=== PATIENT | male | born 1990 | race Caucasian/White ===

== ENCOUNTER 2024-06-30 15:24 | Emergency (ER) | payer OTHER, SELFPAY ==
[2024-06-30 15:30] VITALS: BP 156/102; PULSE 78; RESP 16; TEMP 36.1; O2SAT 98; BMI 31.8
--- NOTE | 2024-06-30 16:18 | ED_ITS ---
HPI - Skin/Abscess/Foreign Bdy <Michelle Romero PA-C - Last Filed: 06/30/24 18:08> General Chief complaint: Skin/Abscess/Foreign Body Stated complaint: abscess on bottom x3 weeks Time Seen by Provider: 06/30/24 16:18 Source: patient Mode of arrival: Ambulatory History of Present Illness HPI narrative: Patient is a very pleasant 34-year-old male presents to the emergency room department today with a history of 3 weeks ago he was seen at [facility] with rectal discomfort and pain, he was then referred to the emergency room department and evaluated in the emergency department with concerns of rectal abscess, CT scan was concerning for a rectal abscess, General surgery was called down and they did not I and D of the perirectal abscess, I and D was performed, drainage was performed, packing was inserted, patient was placed on oral antibiotics, this was 3 weeks ago. Patient seemed to be proceeding and doing quite well, however over the last several days he started to have increasing rectal discomfort, pain, drainage again. Presented to the emergency room department today with discomfort and pain in the rectal area. Concerning for increasing fluid collection again and possible perirectal abscess. 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 Denies fevers, he denies urinary symptoms, denies constipation though he does have difficulty and pain with bowel movements. No back pain. No nausea, vomiting or abdominal pain. No other further complaints. Related Data Previous Rx's Medication Instructions Recorded cephalexin 500 mg capsule 500 mg PO QID 10 days #40 caps 06/30/24 hydrocodone 5 mg-acetaminophen 325 1 tab PO Q4-6H PRN pain #20 tabs 06/30/24 mg tablet Allergies Allergy/AdvReac Type Severity Reaction Status Date / Time No Known Drug Allergies Allergy Verified 06/30/24 15:32 Review of Systems <Michelle Romero PA-C - Last Filed: 06/30/24 18:08> Review of Systems Narrative: Negative except as above Integumentary/Breasts Comments: Patient has a history of skin related issues and abscesses, recently had an abscess on his buttocks, here for a recheck of and concern for reaccumulation or new abscess on his buttock. Patient History <Michelle Romero PA-C - Last Filed: 06/30/24 18:08> Social History Smoking Status: Never smoker Smoking Status: Never smoker Substance Use Type: does not use Exam <Michelle Romero PA-C - Last Filed: 06/30/24 18:08> Initial Vital Signs Initial Vital Signs: Vital Signs Temperature 96.9 F L 06/30/24 15:30 Pulse Rate 78 06/30/24 15:30 Respiratory Rate 16 06/30/24 15:30 Blood Pressure 156/102 H 06/30/24 15:30 Pulse Oximetry 98 06/30/24 15:30 Oxygen Delivery Method Room Air 06/30/24 15:30 Reviewed Const General: cooperative, healthy appearing, comfortable, well developed, well groomed, No acute distress, No in distress, No anxious and No ill appearing Eyes General: Yes appearance normal, both eyes and all related structures Sclera: sclerae normal Cornea: corneas normal Pupils: PERRL EOM: EOM intact bilaterally Cardio Rate: regular rate Rhythm: regular rhythm Other: Pulses are strong. GI Rectal Exam: tenderness, visual inspection abnormal and other (Please skin exam) Skin Other: Warm pink and dry Around the rectal area there is some erythema, noticeable induration, a small area of fluctuance. Two areas and noted a draining 1 at about 3:00 a.m. and then 1 at 6:00 a.m., there isn't any obvious signs tracking, there is no drainage from the rectum. There is no signs of spreading up the buttocks or surrounding the rectal area. The drainage is cloudy, mild smell. No blood is noted. The area is painful when palpated. Neuro Other: Cranial nerves are grossly intact, cognition, speech. Gait is mildly impacted due to discomfort and pain in the rectal area. Extrem Other: Range of motion, strength, pulses, cap refill preserved in the upper and lower extremities bilaterally. Psych Other: Appearance, mental status, speech, movement, mood, affect, attitude, thought process, thought content and judgment are all within normal limits. <Madonna Lazcano MD - Last Filed: 06/30/24 18:44> Initial Vital Signs Initial Vital Signs: Vital Signs Temperature 96.9 F L 06/30/24 15:30 Pulse Rate 78 06/30/24 15:30 Respiratory Rate 16 06/30/24 15:30 Blood Pressure 156/102 H 06/30/24 15:30 Pulse Oximetry 98 06/30/24 15:30 Oxygen Delivery Method Room Air 06/30/24 15:30 Scores <Michelle Romero PA-C - Last Filed: 06/30/24 18:08> GCS Citation: 15 Course <Michelle Romero PA-C - Last Filed: 06/30/24 18:08> Orders Ordered: ED Orders 06/30/24 16:36 CT abdomen pelvis w con Stat 06/30/24 16:45 CBC Auto Diff [Complete Blood Count AUTO DIFF] Stat CMP [Comprehensive Metabolic Panel] Stat Lactate (Lactic Acid) Stat Discontinued Medications Ceftriaxone Sodium 1,000 mg/ (Sodium Chloride) 100 mls @ 200 mls/hr IV NOW ONE Stop: 06/30/24 16:37 Last Infusion: 06/30/24 17:30 Dose: Infused Documented By: Admin: 06/30/24 16:57 Dose: 200 mls/hr Documented By: MADIE Vital Signs Vital signs: Vital Signs - 8 hr 06/30/24 15:30 06/30/24 17:10 06/30/24 18:22 Temperature 96.9 F L Pulse Rate 78 78 76 Respiratory Rate 16 18 16 Blood Pressure 156/102 H 133/80 132/80 Pulse Oximetry 98 97 100 Oxygen Delivery Method Room Air Room Air Nasal Cannula Reviewed <Madonna Lazcano MD - Last Filed: 06/30/24 18:44> Orders Ordered: ED Orders 06/30/24 16:36 CT abdomen pelvis w con Stat 06/30/24 16:45 CBC Auto Diff [Complete Blood Count AUTO DIFF] Stat CMP [Comprehensive Metabolic Panel] Stat Lactate (Lactic Acid) Stat Discontinued Medications Ceftriaxone Sodium 1,000 mg/ (Sodium Chloride) 100 mls @ 200 mls/hr IV NOW ONE Stop: 06/30/24 16:37 Last Infusion: 06/30/24 17:30 Dose: Infused Documented By: Admin: 06/30/24 16:57 Dose: 200 mls/hr Documented By: MADIE Vital Signs Vital signs: Vital Signs - 8 hr 06/30/24 15:30 06/30/24 17:10 06/30/24 18:22 Temperature 96.9 F L Pulse Rate 78 78 76 Respiratory Rate 16 18 16 Blood Pressure 156/102 H 133/80 132/80 Pulse Oximetry 98 97 100 Oxygen Delivery Method Room Air Room Air Nasal Cannula MDM - Skin/Abscess/Foreign Bdy <Michelle Romero PA-C - Last Filed: 06/30/24 18:08> Lab Data 06/30/24 16:45 06/30/24 16:45 Labs: Lab Results 06/30/24 Range/Units 16:45 WBC 8.9 (4.5-11.0) X10^3/uL RBC 4.93 (4.5-5.9) X10^6/uL Hgb 14.3 (13.5-17.5) g/dL Hct 42.1 (41-53) % MCV 85.4 (80-100) fL MCH 28.9 (26-34) PG MCHC 33.9 (30-36) % RDW 13.5 (11.6-14.8) % Plt Count 335 (150-400) X10^3/uL Neut % (Auto) 63.6 (50-75) % Lymph % (Auto) 27.3 (25-40) % [place] % (Auto) 6.1 (3-14) % Eos % (Auto) 2.1 (2-4) % Baso % (Auto) 0.9 (0-2) % Neut # (Auto) 5600 (4959-8708) /uL Lymph # (Auto) 2400 (4351-5312) /uL [place] # (Auto) 500 (0-900) /uL Eos # (Auto) 200 (0-450) /uL Baso # (Auto) 100 (0-100) /uL Sodium 140 (137-145) mmol/L Potassium 4.0 (3.4-5.1) mmol/L Chloride 103 (98-107) mmol/L Carbon Dioxide 28 (22-32) mmol/L BUN 17 (9-20) mg/dL Creatinine 1.14 (0.66-1.25) mg/dL Estimated GFR > 60 (>60) mL/min BUN/Creatinine Ratio 14.9 (6-22) Glucose 96 (70-100) mg/dL Lactate 0.7 (0.7-2.1) mmol/L Calcium 10.0 (8.4-10.2) mg/dL Total Bilirubin 0.5 (0.2-1.3) mg/dL AST 29 (17-59) IU/L ALT 39 (<50) IU/L Alkaline Phosphatase 86 (38-126) U/L Total Protein 8.1 (6.3-8.2) g/dL Albumin 5.0 (3.5-5.0) g/dL Globulin 3.1 (1.7-4.1) g/dL Albumin/Globulin Ratio 1.6 (1.0-2.8) Imaging Data CT scan - abdomen/pelvis: Radiologist's Impression: [address] [address] [address] Scan Report Signed Patient: Carlton Burton MR#: [id number] : 1990 Acct:[id number] Age/Sex: 34 / M Date of Service: 06/30/24 Loc: ED Accession Number: [id number] Procedure: CT abdomen pelvis w con Ordering Provider: Michelle Romero PA-C PROCEDURE: CT ABDOMEN PELVIS W CON INDICATIONS: Rule out perirectal abscess TECHNIQUE: After the administration of intravenous contrast, axial sections acquired from the lung bases to the pubic symphysis. Coronal and sagittal reformats were performed. For radiation dose reduction, the following was used: automated exposure control, adjustment of mA and/or kV according to patient size. COMPARISON: None. FINDINGS: Image quality: Diagnostic. Lower Chest: No significant findings. ABDOMEN: Liver: 3.5 cm right hepatic lobe hemangioma. Gallbladder: No radiopaque gallstones or wall thickening. Biliary ducts: No biliary dilation. Pancreas: No ductal dilation. Spleen: Size is within normal limits. Adrenal Glands: No adrenal nodules. Kidneys and Ureters: No hydronephrosis. No solid mass. No complex renal cystic lesion which requires follow up. Stomach and Bowel: Normal colonic caliber, without significant wall thickening. Normal appendix. Fecal debris within the small bowel. No perianal abscess. Peritoneum: No abnormal intraperitoneal fluid. No free air. Ventral Wall: No significant ventral hernia. Abdominal Nodes: No retroperitoneal or mesenteric adenopathy by size criteria. Vessels: Aorta and inferior vena cava are normal in size. PELVIS: Pelvic Organs: Unremarkable. Bladder: No bladder wall thickening, accounting for underdistention. Pelvic Nodes: No enlarged lymph nodes. Miscellaneous: No inguinal hernias are seen. Bones: No aggressive osseous abnormality. Degenerative disc disease at L5-S1 with disc height loss and vacuum disc phenomenon. IMPRESSION: No perianal abscess. Fecal debris within the small-bowel, usually indicating small intestinal bacterial overgrowth versus slow transit. Dictated by: Freddy Charles M.D. on 06/30/2024 at 17:55 Approved by: Freddy Charles M.D. on 06/30/2024 at 17:58 [facility] Narrative Medical decision making narrative: 34-year-old male presents to the emergency with rectal pain, history of rectal abscess 3 weeks ago that needed to be seen and evaluated in the [facility], general surgery had to come down and I and D it, and placed packing. He was placed on antibiotics, given pain medication. Currently has a follow up appointment upcoming. He was getting better however over the last several days he has had increasing discomfort pain. And now having some drainage. Presented back to the emergency department because he is concerned for reaccumulation and possible worsening and return the abscess. No fevers, no back pain. No other symptoms. Exam shows that he has 2 areas at 3:00 a.m. and 6:00 a.m. that are currently draining, no substantial signs or symptoms of cellulitis. IV was established CBC is normal CMP is normal Lactate is normal Vital signs have been normal 1 g of IV Rocephin CT abdomen pelvis Prescriptions have been sent to his pharmacy Pain medication prescription Supportive therapy education ED precautions Close follow-up with the General surgery group Differential diagnosis; cellulitis/buttock abscess, CT scan does not show perirectal abscess Currently has an area that is draining, no area of substantial fluctuance, substantial areas of induration. <Madonna Lazcano MD - Last Filed: 06/30/24 18:44> Lab Data Labs: Lab Results 06/30/24 Range/Units 16:45 WBC 8.9 (4.5-11.0) X10^3/uL RBC 4.93 (4.5-5.9) X10^6/uL Hgb 14.3 (13.5-17.5) g/dL Hct 42.1 (41-53) % MCV 85.4 (80-100) fL MCH 28.9 (26-34) PG MCHC 33.9 (30-36) % RDW 13.5 (11.6-14.8) % Plt Count 335 (150-400) X10^3/uL Neut % (Auto) 63.6 (50-75) % Lymph % (Auto) 27.3 (25-40) % [place] % (Auto) 6.1 (3-14) % Eos % (Auto) 2.1 (2-4) % Baso % (Auto) 0.9 (0-2) % Neut # (Auto) 5600 (1327-2505) /uL Lymph # (Auto) 2400 (5914-6311) /uL [place] # (Auto) 500 (0-900) /uL Eos # (Auto) 200 (0-450) /uL Baso # (Auto) 100 (0-100) /uL Sodium 140 (137-145) mmol/L Potassium 4.0 (3.4-5.1) mmol/L Chloride 103 (98-107) mmol/L Carbon Dioxide 28 (22-32) mmol/L BUN 17 (9-20) mg/dL Creatinine 1.14 (0.66-1.25) mg/dL Estimated GFR > 60 (>60) mL/min BUN/Creatinine Ratio 14.9 (6-22) Glucose 96 (70-100) mg/dL Lactate 0.7 (0.7-2.1) mmol/L Calcium 10.0 (8.4-10.2) mg/dL Total Bilirubin 0.5 (0.2-1.3) mg/dL AST 29 (17-59) IU/L ALT 39 (<50) IU/L Alkaline Phosphatase 86 (38-126) U/L Total Protein 8.1 (6.3-8.2) g/dL Albumin 5.0 (3.5-5.0) g/dL Globulin 3.1 (1.7-4.1) g/dL Albumin/Globulin Ratio 1.6 (1.0-2.8) Discharge Plan Departure Patient Disposition: Home Clinical Impression: Abscess of skin or subcutaneous tissue Qualifiers: Site of cutaneous abscess: unspecified site Qualified Code(s): L02.91 - Cutaneous abscess, unspecified Cellulitis Qualifiers: Site of cellulitis: other site Qualified Code(s): L03.818 - Cellulitis of other sites Activity Restrictions/Additional Instructions: Epsom salt soaks Warm water, Epsom salts in the tub, sit in the tub as much as You can possibly tolerate it Please take the antibiotics as prescribed Please follow up with the surgeon No drinking or driving or operating power equipment or power tools on the narcotics Tylenol ibuprofen if your going to be at work Consider purchasing a donut this is the blowup kind you can buy it at [employer] or righted it has like a toilet seat that is inflatable this will elevate your but so that you are not sitting right on your rectal area this will help with discomfort and pain Prescriptions: New cephalexin 500 mg capsule 500 mg PO QID 10 Days Qty: 40 0RF hydrocodone-acetaminophen 5-325 mg tablet 1 tab PO Q4-6H PRN (Reason: pain) Qty: 20 0RF Stand Alone Forms: Patient Portal/API ED Sign-out <Madonna Lazcano MD - Last Filed: 06/30/24 18:44> Cosign ED Attending Cosignature Attestation: I was immediately available in the department for consultation throughout this patient's visit. Madonna Lazcano MD
--- NOTE | 2024-06-30 16:36 | DI.CT.S_ITS ---
PROCEDURE: CT ABDOMEN PELVIS W CON INDICATIONS: Rule out perirectal abscess TECHNIQUE: After the administration of intravenous contrast, axial sections acquired from the lung bases to the pubic symphysis. Coronal and sagittal reformats were performed. For radiation dose reduction, the following was used: automated exposure control, adjustment of mA and/or kV according to patient size. COMPARISON: None. FINDINGS: Image quality: Diagnostic. Lower Chest: No significant findings. ABDOMEN: Liver: 3.5 cm right hepatic lobe hemangioma. Gallbladder: No radiopaque gallstones or wall thickening. Biliary ducts: No biliary dilation. Pancreas: No ductal dilation. Spleen: Size is within normal limits. Adrenal Glands: No adrenal nodules. Kidneys and Ureters: No hydronephrosis. No solid mass. No complex renal cystic lesion which requires follow up. Stomach and Bowel: Normal colonic caliber, without significant wall thickening. Normal appendix. Fecal debris within the small bowel. No perianal abscess. Peritoneum: No abnormal intraperitoneal fluid. No free air. Ventral Wall: No significant ventral hernia. Abdominal Nodes: No retroperitoneal or mesenteric adenopathy by size criteria. Vessels: Aorta and inferior vena cava are normal in size. PELVIS: Pelvic Organs: Unremarkable. Bladder: No bladder wall thickening, accounting for underdistention. Pelvic Nodes: No enlarged lymph nodes. Miscellaneous: No inguinal hernias are seen. Bones: No aggressive osseous abnormality. Degenerative disc disease at L5-S1 with disc height loss and vacuum disc phenomenon. IMPRESSION: No perianal abscess. Fecal debris within the small-bowel, usually indicating small intestinal bacterial overgrowth versus slow transit. Dictated by: Freddy Charles M.D. on 06/30/2024 at 17:55 Approved by: Freddy Charles M.D. on 06/30/2024 at 17:58
[2024-06-30 16:56] LABS: Add Manual Diff / Slide Review NO; Basophils Absolute Auto 100 /uL (0-100); Basophils Percent Auto 0.9 % (0-2); Eosinophils Absolute Auto 200 /uL (0-450); Eosinophils Percent Auto 2.1 % (2-4); Hematocrit 42.1 % (41-53); Hemoglobin 14.3 g/dL (13.5-17.5); Lymphocytes Absolute Auto 2400 /uL (1100-4500); Lymphocytes Percent Auto 27.3 % (25-40); Mean Corpuscular HGB Conc 33.9 % (30-36); Mean Corpuscular Hemoglobin 28.9 PG (26-34); Mean Corpuscular Volume 85.4 fL (80-100); Monocytes Absolute Auto 500 /uL (0-900); Monocytes Percent Auto 6.1 % (3-14); Neutrophils Absolute Auto 5600 /uL (1500-7000); Neutrophils Percent Auto 63.6 % (50-75); Platelet Count 335 X10^3/uL (150-400); Red Blood Cell Count 4.93 X10^6/uL (4.5-5.9); Red Cell Distribution Width 13.5 % (11.6-14.8); White Blood Cell Count 8.9 X10^3/uL (4.5-11.0)
[2024-06-30] MEDS: cefTRIAXone 1,000 MG in SODIUM CHLORIDE 0.9% 100 ML 200 MG IV (16:57)
[2024-06-30 17:07] LABS: Lactate (Lactic Acid) 0.7 mmol/L (0.7-2.1)
[2024-06-30 17:08] LABS: Alanine Aminotransferase 39 IU/L (<50); Albumin Globulin Ratio 1.6 (1.0-2.8); Alkaline Phosphatase 86 U/L (38-126); Aspartate Aminotransferase 29 IU/L (17-59); BUN Creatinine Ratio 14.9 (6-22); Bilirubin Total 0.5 mg/dL (0.2-1.3); Blood Urea Nitrogen 17 mg/dL (9-20); Carbon Dioxide 28 mmol/L (22-32); Chloride 103 mmol/L (98-107); Estimated Glomerular Filt Rate > 60 mL/min (>60); Globulin 3.1 g/dL (1.7-4.1); Glucose 96 mg/dL (70-100); HEMOLYSIS < 15 (0-50); Sodium 140 mmol/L (137-145); Total Protein 8.1 g/dL (6.3-8.2)
[2024-06-30 17:10] VITALS: BP 133/80; PULSE 78; RESP 18; O2SAT 97
[2024-06-30 18:22] VITALS: BP 132/80; PULSE 76; RESP 16; O2SAT 100
== END 2024-06-30 18:25 | disposition home or self-care (01) ==
PROVIDERS: Emergency Provider Physician Assistant
DX: K61.1 Rectal abscess (principal); L03.818 Cellulitis of other sites
CPT/HCPCS: 36415; 74177; 80053; 83605; 85025; 96365; 99284; J0696; Q9967